=== PATIENT | female | born 1990 | race Caucasian/White ===

== ENCOUNTER → 2018-01-29 11:13 | Outpatient (CLI) | payer MEDICAID, SELFPAY ==
[2018-01-29 12:14] LABS: hCG Titer Quant., Serum < 1 mIU/mL (<9 non-preg)
== END ==
PROVIDERS: Referring Provider Obstetrics & Gynecology; Visit Provider Obstetrics & Gynecology
DX: N91.2 Amenorrhea, unspecified (principal)
CPT/HCPCS: 36415; 84702

== ENCOUNTER → 2018-09-21 | Outpatient (CLI) | payer MEDICAID, SELFPAY ==
[2018-09-21 11:06] VITALS: BMI 24.4
[2018-09-21 12:13] LABS: Absolute Lymphocyte Count 1.98 X10^3/ul (0.83-4.51); Absolute Neutrophil Count 6.8 X10^3/uL (2.0-7.7); Basophil# 0.01 X10^3/uL; Basophil% 0.1 % (0-1); Eosinophil# 0.06 X10^3/uL; Eosinophils% 0.6 % (0-5); Hematocrit 38.1 % (37-47); Hemoglobin 13.3 g/dl (12.0-15.0); Lymphocyte # 1.98 X10^3/ul (4.0); Mean Corp Hgb Conc 34.9 g/gl (32-36); Mean Corpuscular Hgb 31.3 pg (27.0-32.0); Mean Corpuscular Volume 89.6 fL (81-99); Mean Platelet Vol. 10.2 fl (6.2-12.0); Monocyte# 0.59 X10^3/uL; Monocyte% 6.3 % (0-10); Neutrophil # 6.79 X10^3/uL (2.7-7.7); Neutrophil % 71.9 % (47-70); Platelet Count 223 K/mm3 (150-450); RBC Distribution Width CV 13.6 % (11.6-14.6); RBC Distribution Width SD 44.6 fl (35.1-43.9); Red Blood Count 4.25 M/mm3 (4.2-5.4); White Blood Count 9.4 K/mm3 (4.4-11.0)
[2018-09-21 12:17] LABS: POSITIVE COUNT NO; POSITIVE DIFFERENTIAL NO; POSITIVE MORPHOLOGY NO
[2018-09-21 13:29] LABS: HIV - WCH Non-Reactive (Nonreactive); Hepatitis B Surface Antigen Non-Reactive (Nonreactive); Rubella IgG 97.6 IU/mL
--- NOTE | 2018-09-21 16:02 | US_ITS ---
STUDY: SECOND AND THIRD TRIMESTER OBSTETRICAL ULTRASOUND REASON FOR EXAM: Female, 27 years old. Anatomy. LMP: April 21, 2018. TECHNIQUE: Transabdominal TECHNICAL QUALITY: Adequate. PRIOR ULTRASOUND: None. FINDINGS: There is a single intrauterine fetus. The fetus is in a breech presentation. There is demonstrated cardiac activity with a heart rate of 160 bpm. There is a normal amniotic fluid volume. The largest amniotic fluid pocket measures 5.8 cm. The placenta is posterior in location and is not low lying. There are Grade 1 placental changes. The cervix measures 3.7 cm in length. The bilateral adnexal regions are normal. BIOMETRY: BPD: 5.4 cm: 22 weeks, 4 days HC: 20.38 cm: 22 weeks, 4 days AC: 17.83 cm: 22 weeks, 5 days FL: 3.93 cm: 22 weeks, 5 days CI: FL/BPD: 76 FL/HC: FL/AC: 22 HC/AC: 1.14 age by current US: 22 weeks, 5 days. SLADE by current US: January 20, 2019. Estimated weight: 523 grams, +/- 76 grams, 83 %. Age by LMP: 21 weeks, 6 days. SLADE by LMP: January 26, 2019. ANATOMY: Gender: Female Cranium: Normal lateral ventricles. Normal choroid plexus. Normal cerebellum. Normal cisterna magna. Normal face, nose and lips. Chest: Normal 4-chamber heart. Abdomen/Pelvis: Normal diaphragm. Normal stomach. Normal abdominal wall. Normal cord insertion. Normal 3 vessel cord. Normal kidneys. Normal bladder. Spine: Normal cervical spine. Normal thoracic spine. Normal lumbar spine. Normal sacrum. There is limited sagittal evaluation of the spine particularly of the lumbar spine. Extremities: Normal bilateral upper extremities. Normal bilateral lower extremities. US/OB Anatomy Scan IMPRESSION: 1. Live single intrauterine 22 weeks, 5 days. SLADE is January 20, 2019. 2. EFW 523 g. 3. Adequate amniotic fluid. 4. Posterior grade 1 placenta. 5. Breech presentation. 6. No visualized anatomic abnormality of the fetus. Electronically Signed: Kalyan Segovia DO at 22:24 EDT Tel [phone], Service support ,
[2018-09-21 16:55] LABS: Chlamydia Trachomatis by PCR Negative (Negative); Neisserai gonorrhoeae by PCR Negative (Negative); Probe Check PASS; Sample Adequacy Control PASS; Specimen Processing Control PASS
[2018-09-25 05:48] LABS: Rapid Plasmin Reagin (RPR) NONREACTIVE (NONREACTIVE)
[2018-09-30 18:00] LABS: HPV Reflexed? NOT INDICATED
== END | disposition home or self-care (01) ==
PROVIDERS: Referring Provider Obstetrics & Gynecology; Visit Provider Obstetrics & Gynecology
DX: O09.30 Supervision of pregnancy with insufficient antenatal care, unspecified trimester (principal); Z12.4 Encounter for screening for malignant neoplasm of cervix; Z34.90 Encounter for supervision of normal pregnancy, unspecified, unspecified trimester; Z3A.00 Weeks of gestation of pregnancy not specified
CPT/HCPCS: 36415; 76805; 85025; 86592; 86703; 86762; 86850; 86900; 87086; 87088; 87340; 87491; 87591; 87624; 88175; G0145

== ENCOUNTER → 2018-11-12 | Outpatient (CLI) | payer MEDICAID, SELFPAY ==
[2018-11-10 08:28] VITALS: BMI 24.4
[2018-11-12 10:38] LABS: Absolute Lymphocyte Count 2.07 X10^3/uL (0.83-4.51); Absolute Neutrophil Count 8.1 X10^3/uL (2.0-7.7); Basophil# 0.03 X10^3/uL; Basophil% 0.3 % (0-1); Eosinophil# 0.07 X10^3/uL; Eosinophils% 0.6 % (0-5); Hematocrit 36.7 % (37-47); Hemoglobin 12.5 g/dL (12.0-15.0); Lymphocyte # 2.07 X10^3/ul (4.0); Mean Corp Hgb Conc 34.1 g/dL (32-36); Mean Corpuscular Hgb 31.4 pg (27.0-32.0); Mean Corpuscular Volume 92.2 fL (81-99); Mean Platelet Vol. 10.5 fl (6.2-12.0); Monocyte# 0.64 X10^3/uL; Monocyte% 5.9 % (0-10); NRBC Flagged by Analyzer 0 % (0-5); Neutrophil # 8.06 X10^3/uL (2.7-7.7); Neutrophil % 73.8 % (47-70); Platelet Count 234 K/mm3 (150-450); RBC Distribution Width CV 12.1 % (11.6-14.6); RBC Distribution Width SD 41.2 fl (35.1-43.9); Red Blood Count 3.98 M/mm3 (4.2-5.4); White Blood Count 10.9 K/mm3 (4.4-11.0)
[2018-11-12 10:52] LABS: Glucose Challenge Gest 1H 50g 114 mg/dL (70-140)
== END | disposition home or self-care (01) ==
LOC: PAVLAB 09:57
PROVIDERS: Referring Provider Obstetrics & Gynecology; Visit Provider Obstetrics & Gynecology
DX: Z34.90 Encounter for supervision of normal pregnancy, unspecified, unspecified trimester (principal); Z3A.29 29 weeks gestation of pregnancy
CPT/HCPCS: 36415; 82950; 85025

== ENCOUNTER → 2018-11-30 14:02 | Outpatient (CLI) | payer MEDICAID, SELFPAY ==
[2018-11-24 12:54] VITALS: BMI 24.4
--- NOTE | 2018-11-30 14:04 | US_ITS ---
STUDY: SECOND AND THIRD TRIMESTER OBSTETRICAL ULTRASOUND REASON FOR EXAM: Female, 28 years old. Growth LMP: 04/21/2018 TECHNIQUE: Transabdominal TECHNICAL QUALITY: Adequate. PRIOR ULTRASOUND: 09/21/2018. FINDINGS: There is a single intrauterine fetus. The fetus is in a cephalic presentation. There is demonstrated cardiac activity with a heart rate of 146 bpm. There is a normal amniotic fluid volume. The largest amniotic fluid pocket measures 4.6 cm. The amniotic fluid index (LAILA) is 11.8 cm. The placenta is posterior and fundal in location and is not low lying. There are Grade 0 placental changes. The cervix measures 4.7 cm in length. The adnexal regions are not visualized. BIOMETRY: BPD: 8.1: 32 weeks, 3 days HC: 30.1: 33 weeks, 3 days AC: 28.6: 32 weeks, 5 days FL: 6.3: 32 weeks, 4 days CI: FL/BPD: FL/HC: FL/AC: HC/AC: age by current US: 32 weeks, 6 days. SLADE by current US: 01/19/2019. Estimated weight: 2019 grams, +/- 295 grams, 65 %. age by prior US: weeks, days. SLADE by prior US: . Age by LMP: 31 weeks, 6 days. SLADE by LMP: 01/26/2019. US/OB Limited With Biometrics IMPRESSION: Single live fetus in a vertex presentation. survey not performed on this exam. Placenta is grade 0 and is not low-lying. Cervix is closed. age by current US: 32 weeks, 6 days. SLADE by current US: 01/19/2019. Estimated weight: 2019 grams, +/- 295 grams, 65 %. Electronically Signed: Bennett Marie MD at 14:22 EDT , Service support ,
== END ==
PROVIDERS: Referring Provider Obstetrics & Gynecology; Visit Provider Obstetrics & Gynecology
DX: O09.90 Supervision of high risk pregnancy, unspecified, unspecified trimester (principal); O09.30 Supervision of pregnancy with insufficient antenatal care, unspecified trimester; Z3A.00 Weeks of gestation of pregnancy not specified
CPT/HCPCS: 76816

== ENCOUNTER → 2018-12-31 12:14 | Outpatient (CLI) | payer MEDICAID, SELFPAY ==
[2018-12-31 08:06] VITALS: BMI 24.4
== END ==
PROVIDERS: Referring Provider Obstetrics & Gynecology; Visit Provider Obstetrics & Gynecology
DX: Z34.90 Encounter for supervision of normal pregnancy, unspecified, unspecified trimester (principal); Z3A.36 36 weeks gestation of pregnancy
CPT/HCPCS: 87081

== ENCOUNTER → 2019-01-08 09:09 | Outpatient (CLI) | payer MEDICAID, SELFPAY ==
[2018-12-31 08:06] VITALS: BMI 24.4
[2019-01-06 15:09] VITALS: BMI 24.4
--- NOTE | 2019-01-08 09:11 | US_ITS ---
STUDY: SECOND AND THIRD TRIMESTER OBSTETRICAL ULTRASOUND REASON FOR EXAM: Female, 28 years old growth. LMP: November 30, 2018 TECHNIQUE: Transabdominal TECHNICAL QUALITY: Adequate. PRIOR ULTRASOUND: None. FINDINGS: There is a single intrauterine fetus. The fetus is in a cephalic presentation. There is demonstrated cardiac activity with a heart rate of 148 bpm. There is a normal amniotic fluid volume. The largest amniotic fluid pocket measures 5.0 cm. The amniotic fluid index (LAILA) is 12.1 cm. The placenta is fundal in location. There are Grade 2 placental changes. The cervix is not able to be measured due to position.. The adnexal regions are not visualized. BIOMETRY: BPD: 9.12 cm: 36 weeks, 6 days HC: 34.02 cm: 39 weeks, 0 days AC: 33.9 cm: 37 weeks, 5 days FL: 7.04 cm: 36 weeks, 0 days CI: 79% FL/BPD: 77% FL/HC: FL/AC: 21% HC/AC: 1.0 age by current US: 37 weeks, 2 days. SLADE by current US: January 27, 2019. Estimated weight: 3212 grams, +/- 475 grams, 59 %. age by prior US: 38 weeks, 3 days. SLADE by prior US: January 19, 2019 Age by LMP: 37 weeks, 3 days. SLADE by LMP: January 26, 2019. US/OB Limited With Biometrics IMPRESSION: Single live intrauterine gestation with a mean gestational age of 38 weeks and 3 days. The measurements obtained today fall within normal expected range. Electronically Signed: Gabe Keenan, at 10:16 EDT , Service support ,
== END ==
PROVIDERS: Referring Provider Obstetrics & Gynecology; Visit Provider Obstetrics & Gynecology
DX: O26.843 Uterine size-date discrepancy, third trimester (principal); Z3A.00 Weeks of gestation of pregnancy not specified
CPT/HCPCS: 76816

== ENCOUNTER 2019-01-31 20:00 | Inpatient (IN) | payer MEDICAID, SELFPAY ==
[2019-01-27 09:57] VITALS: BMI 27.7
[2019-01-31] MEDS: Lactated Ringers 1,000 ML 200 ML IV (20:30)
[2019-01-31 20:53] LABS: Absolute Lymphocyte Count 2.69 X10^3/uL (0.83-4.51); Absolute Neutrophil Count 7.5 X10^3/uL (2.0-7.7); Basophil# 0.02 X10^3/uL; Basophil% 0.2 % (0-1); Eosinophil# 0.08 X10^3/uL; Eosinophils% 0.7 % (0-5); Hematocrit 37.8 % (37-47); Hemoglobin 12.4 g/dL (12.0-15.0); Lymphocyte # 2.69 X10^3/ul (4.0); Lymphocyte % 24.6 % (19-41); Mean Corp Hgb Conc 32.8 g/dL (32-36); Mean Corpuscular Hgb 27.3 pg (27.0-32.0); Mean Corpuscular Volume 83.3 fL (81-99); Mean Platelet Vol. 10.9 fl (6.2-12.0); Monocyte# 0.64 X10^3/uL; Monocyte% 5.9 % (0-10); NRBC Flagged by Analyzer 0 % (0-5); Neutrophil # 7.46 X10^3/uL (2.7-7.7); Neutrophil % 68.3 % (47-70); Platelet Count 314 K/mm3 (150-450); RBC Distribution Width CV 13.2 % (11.6-14.6); RBC Distribution Width SD 39.6 fl (35.1-43.9); Red Blood Count 4.54 M/mm3 (4.2-5.4); White Blood Count 10.9 K/mm3 (4.4-11.0)
[2019-01-31] MEDS: Oxytocin 30 units/NS 500 ml 30 UNITS/500 ML IV.SOLN IV (21:20)
[2019-01-31 21:26] VITALS: BMI 27.9
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
[2019-01-31] MEDS: Lactated Ringers 500 ML 999 ML IV (22:58)
[2019-02-01] MEDS: Lactated Ringers 1,000 ML 50 ML IV (03:06)
[2019-02-01] MEDS: Oxytocin 30 units/NS 500 ml 30 UNITS/500 ML IV.SOLN 334 UNITS IV (04:50)
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
[2019-02-01 08:27] VITALS: BP 139/93; PULSE 81; RESP 16; TEMP 36.6
[2019-02-01 12:40] VITALS: BP 114/68; PULSE 108; RESP 16; TEMP 37.3
[2019-02-01 15:38] VITALS: BP 133/64; PULSE 99; RESP 16; TEMP 37.1
[2019-02-01 19:59] VITALS: BP 120/77; PULSE 94; RESP 18; TEMP 36.8; O2SAT 97
[2019-02-02 00:29] VITALS: BP 117/63; PULSE 86; RESP 16; TEMP 36.4
[2019-02-02 04:23] VITALS: BP 124/78; PULSE 76; RESP 16; TEMP 36.6
--- NOTE | 2019-02-02 07:40 | PCM.PN.OB ---
Patient Problems: Active and Suspected Problems (Last Reviewed 01/27/19 @ 09:57 by Kari Lau) SROM (spontaneous rupture of membranes) (Acute) Subjective: doing well no complaints pain controlled no CP SOB N V ambulating well tolerating po lochia moderate, with some difficulty, pumping - Physical Exam Vitals/I&O's: Vital Signs Temp Pulse Resp BP Pulse Ox 97.9 F 76 16 124/78 H 97 02/02/19 04:23 02/02/19 04:23 02/02/19 04:23 02/02/19 04:23 02/01/19 19:59 Oxygen Delivery Method Room Air Weight: 173 lb Body Mass Index (BMI) 27.9 Intake and Output for Last 24 Hours 01/31/19 02/01/19 02/02/19 23:59 23:59 23:59 Intake Total 1004.77 / 1004.77 987.67 / 987.67 Output Total 75 / 75 1550 / 1550 Balance 929.77 / 929.77 -562.33 / -562.33 General: Alert, Oriented x3 Abdomen: Non Tender, Non-Distended, - - FF below U Current Medications Acetaminophen (Tylenol) 1,000 mg PO Q8H PRN PRN PRN Reason: Pain Score 1-3/10 Bisacodyl (Dulcolax) 10 mg RECTAL UD PRN PRN Reason: If no BM Dibucaine (Dibucaine) 1 applic TOPICAL TID PRN PRN; Protocol PRN Reason: Discomfort Hydrocortisone (Hytone) 1 applic TOPICAL TID PRN PRN; Protocol PRN Reason: Discomfort Methylergonovine Maleate (Methergine) 0.2 mg IM X1 PRN PRN Reason: Excess bleeding/uterine atony Naproxen (Naprosyn) 500 mg PO Q8H PRN PRN PRN Reason: Pain Score 1-3/10 Ondansetron HCl (Zofran) 4 mg IV Q4H PRN PRN PRN Reason: Nausea Oxycodone HCl (Oxyir) 5 - 10 mg PO Q4H PRN PRN PRN Reason: Pain Score 4-10/10 Senna/Docusate Sodium (Senokot-S, Mechelle-Colace) 1 - 2 tablet PO DAILY PRN PRN PRN Reason: Constipation Simethicone (Mylicon) 80 mg PO PCHS PRN PRN Reason: Indigestion/Stomach pain Sodium Chloride () 5 - 15 ml IV UD PRN PRN Reason: SALINE FLUSH Medical Necessity - Tobacco Use Smoking Status: Never smoker Assessment/Plan All Active Problems (Last Reviewed 01/27/19 @ 09:57 by Kari Lau) SROM (spontaneous rupture of membranes) (Acute) Influenza vaccination declined (Acute) Low grade squamous intraepithelial lesion (LGSIL) (Acute) (Acute) Late care affecting (Acute) Supervision of high-risk (Acute) s/p PPD # 1. routine post delivery care 2. breast feeding- support given 3. rh positive 4. rubella immune 5. home today
--- NOTE | 2019-02-02 07:42 | DCINST_ITS ---
Additional Instructions: If you experience any of the following, contact your healthcare provider. * Bleeding that soaks a pad every hour for 2 hours * Fever 100.4 or higher * Unrelieved incision or abdominal pain * Swelling, redness, discharge or bleeding from your incision or episiotomy site * Your incision begins to separate * Problems urinating (including inability to urinate or burning while urinating). * Visual changes * Severe headache * Flu-like symptoms * Pain or redness in one of both of your breasts * Pain, warmth, tenderness or swelling in your legs, especially the calf area * Frequent nausea and vomiting * Symptoms of depression or anxiety If you experience any of the following, call 911 or go to the nearest Emergency Room. * Chest pain * Problems breathing * Seizure activity * Partial or complete paralysis of a body part, slurred speech, weakness or drooping of the face, or a sudden inability to walk or hold your balance Allergies/Adverse Reactions: Allergies No Known Allergies Allergy (Verified 01/31/19 21:53) Medications to take at Discharge vitamin#30 30 mg iron-10 mg iron-folic acid 1 mg-omg3 capsule 1 cap PO DAILY cap 09/21/18 Primary Care Physician: Care Physician,No Primary [Primary Care Provider] - Test Results: Test results from this visit will be discussed in further detail at your follow- up appointment, if applicable.
--- NOTE | 2019-02-02 07:42 | PCM.DCVAG ---
Additional Instructions: If you experience any of the following, contact your healthcare provider. Bleeding that soaks a pad every hour for 2 hours Fever 100.4 or higher Unrelieved incision or abdominal pain Swelling, redness, discharge or bleeding from your incision or episiotomy site Your incision begins to separate Problems urinating (including inability to urinate or burning while urinating). Visual changes Severe headache Flu-like symptoms Pain or redness in one of both of your breasts Pain, warmth, tenderness or swelling in your legs, especially the calf area Frequent nausea and vomiting Symptoms of depression or anxiety If you experience any of the following, call 911 or go to the nearest Emergency Room. Chest pain Problems breathing Seizure activity Partial or complete paralysis of a body part, slurred speech, weakness or drooping of the face, or a sudden inability to walk or hold your balance Allergies/Adverse Reactions: Allergies No Known Allergies Allergy (Verified 01/31/19 21:53) Medications to take at Discharge vitamin#30 30 mg iron-10 mg iron-folic acid 1 mg-omg3 capsule 1 cap PO DAILY cap 09/21/18 Primary Care Physician: Care Physician,No Primary [Primary Care Provider] - Test Results: Test results from this visit will be discussed in further detail at your follow-up appointment, if applicable.
[2019-02-02 08:23] VITALS: BP 116/64; PULSE 67; RESP 16; TEMP 36.5
[2019-02-02 14:00] VITALS: BP 135/86; PULSE 83; RESP 16; TEMP 36.6
[2019-02-02 19:00] VITALS: BP 134/93; PULSE 110; RESP 16; TEMP 36.4; O2SAT 97
== END 2019-02-02 19:23 | disposition home or self-care (01) | DRG 560 ==
PROVIDERS: Admitting Provider Obstetrics & Gynecology; Referring Provider Obstetrics & Gynecology; Visit Provider Obstetrics & Gynecology
DX: O80 Encounter for full-term uncomplicated delivery (principal); Z3A.40 40 weeks gestation of pregnancy; Z37.0 Single live birth; R87.612 Low grade squamous intraepithelial lesion on cytologic smear of cervix (LGSIL)
CPT/HCPCS: 59050; 85025; 86850; 86900; 86901; 99218; J7120; G0378

== ENCOUNTER → 2020-11-14 | Outpatient (CLI) | payer MEDICAID, SELFPAY ==
[2020-11-17 03:07] LABS: Chlamydia By Nucleic Acid AMP Negative (Negative)
[2020-11-17 12:16] LABS: Gonococcus By Nucleic Acid AMP Negative (Negative)
[2020-11-17 16:33] LABS: HPV Reflexed? NOT INDICATED
== END | disposition home or self-care (01) ==
LOC: LABSPEC 17:14
PROVIDERS: Referring Provider Nurse Practitioner Women's Health; Visit Provider Nurse Practitioner Women's Health
DX: Z11.3 Encounter for screening for infections with a predominantly sexual mode of transmission (principal); Z12.4 Encounter for screening for malignant neoplasm of cervix
CPT/HCPCS: 87491; 87591; 88175; G0145

== ENCOUNTER 2021-02-11 23:51 | Emergency (ER) | payer MEDICAID, SELFPAY ==
[2021-02-11 23:51] VITALS: BP 144/95; PULSE 106; RESP 20; TEMP 36.2; O2SAT 98; BMI 22.6
--- NOTE | 2021-02-12 00:01 | RAD_ITS ---
HISTORY: Trauma, injury-- attn: 1st toe EXAMINATION/TECHNIQUE: XR Foot Min 3 Views: COMPARISON: None FINDINGS: BONES/JOINTS: No acute fracture or dislocation. Preservation of the joint spaces. SOFT TISSUES: No soft tissue swelling or gas. No radiopaque foreign body. RAD/Foot min 3 Views IMPRESSION: No acute bony abnormality. at 0021 Reported and signed by: Gt Gandhi MD Electronically Signed: Gt Gandhi MD at 0:20 EST Tel , Service support ,
--- NOTE | 2021-02-12 00:02 | EDS_ITS ---
HPI History of Present Illness Chief Complaint: Lower Extremity Injury Informant: patient Onset/Context/Timing Onset: Today Current Severity: Moderate Maximum Severity: Moderate Narrative Narrative: Patient presents secondary to right great toe injury. Patient states she was sitting on her bed and got her knee caught on her purse handle. She fell off the bed putting all her weight on her right foot. She has pain to her right great toe and is concerned it is dislocated. She denies any other injury. PFSH PFSH Medical History no medical history no medical history Home Medications NK 02/12/21 [History Last Taken Unknown] Allergy/AdvReac Type Severity Reaction Status Date / Time No Known Allergies Allergy Verified 02/11/21 23:54 Family History Grandfather Heart disease Myocardial infarction Surgical History History of wisdom tooth extraction, class II edentulism Social History Smoking Status: Never smoker alcohol intake: never substance use type: does not use caffeine: Yes what type of physical activity do you participate in: walking seatbelt use: always do you feel safe at home: Yes additional social history: Seperated- works at the [employer] ED Constitutional Constitutional ED: Denies chills or fever(s) Eyes Eyes: Denies change in vision ENT ENT ED: Denies sore throat Cardiovascular Cardiovascular: Denies chest pain Respiratory/Chest Respiratory/Chest: Denies cough or dyspnea Gastrointestinal Gastrointestinal: Denies abdominal pain or nausea Genitourinary Genitourinary ED: Denies dysuria Musculoskeletal Musculoskeletal: Denies back pain Integumentary Denies rash Neurologic Neurologic: Denies weakness Allergic/Immunologic Allergic/Immunologic ED: Denies urticaria EXAM Physical Exam Const Vital Signs: 02/11/21 23:51 Temperature 97.2 F L Temperature Source Temporal Pulse Rate 106 H Respiratory Rate 20 H Blood Pressure 144/95 H Blood Pressure Mean 111 Pulse Ox 98 Oxygen Delivery Method Room Air Positive well nourished and well developed General Appearance ED: well developed Eyes PERRL and EOMs intact bilaterally Neck supple Chest Wall inspection of chest normal and palpation of chest normal Resp normal respiratory effort and clear to auscultation bilaterally Cardio regular rate and regular rhythm GI non-tender Palpation: soft Extremity Extremity Narrative: Mild erythema to the right great toe. No obvious deformity. Good cap refill distally. No tenderness over the ankle, calcaneus, metatarsal bones. Neuro oriented x3 Sensorium / Orientation: alert Psych mental status grossly normal Skin no rashes or lesions noted MDM MDM MDM Narrative Medical decision making narrative: Right foot x-rays obtained Radiography Diagnostic Testing: Clinical Impression(s) from Imaging Studies Foot X-Ray 02/12/21 00:01 IMPRESSION: No acute bony abnormality. at 0021 Reported and signed by: Gt Gandhi MD Electronically Signed: Gt Gandhi MD at 0:20 EST Tel , Service support , Treatment and Re-Evaluation Comments:: Right foot x-ray reveals no acute abnormality per my interpretation. No fracture noted. Radiology interpretation is reviewed. Test results discussed with the patient. Encouraged to walk on her heel and use anti-inflammatories. Return instructions provided. Discharge Plan Triage Chief Complaint: Lower Extremity Injury ED Provider: Sarah Metcalf Dx/Rx/DC Orders Clinical Impression: Sprain of toe, great, right Instructions: ED Foot Sprain Prescriptions: No Action NK RF: 0 Primary Care Provider: Care Physician,No Primary Referrals: Staci Parker MD [STAFF PHYSICIAN] - As Needed Care Physician,No Primary [Primary Care Provider] - Disposition Disposition: Home, Self Care
== END 2021-02-12 00:28 | disposition home or self-care (01) ==
PROVIDERS: Emergency Provider Emergency Medicine
DX: S93.501A Unspecified sprain of right great toe, initial encounter (principal); W06.XXXA Fall from bed, initial encounter; Y93.9 Activity, unspecified; Y92.9 Unspecified place or not applicable
CPT/HCPCS: 73630; 99282

== ENCOUNTER → 2022-08-07 | Outpatient (CLI) | payer MEDICAID, SELFPAY ==
--- NOTE | 2022-08-07 14:26 | BI_ITS ---
MAMMOGRAPHY - BILATERAL DIAGNOSTIC REASON FOR EXAM: Female, 31 years old. 4 day history of right retroareolar breast pain/fullness. PERTINENT HISTORY: Non-contributory. TECHNIQUE: Digital bilateral breast melany (3D mammographic acquisition) in the CC and MLO projections. 2-D mediolateral oblique (MLO) and craniocaudad (CC) views of both breasts were obtained. CAD: Full Field Digital Mammography with Computer Added Detection was performed. COMPARISON: None. Baseline examination. FINDINGS: Breast Composition: The breasts are heterogeneously dense, which may obscure small masses. There are no dominant masses or suspicious calcifications. No other significant abnormalities are identified. BI/DIAG MAMM W/CAD, BILAT IMPRESSION: Negative diagnostic mammogram. With the patient''s history of fullness/pain in the right retroareolar region, correlation with ultrasound is recommended. ASSESSMENT CATEGORY: BIRADS Category 0: Incomplete. Need additional imaging evaluation. A letter regarding these results will be sent to the patient by the facility within 30 days. Approximately 10% of breast cancers are not detected by mammography. A normal mammogram should not delay biopsy of a clinically suspicious abnormality. Electronically Signed: Gabe Keenan MD at 15:05 EDT ,
--- NOTE | 2022-08-07 14:26 | US_ITS ---
STUDY: ULTRASOUND BREAST - RIGHT REASON FOR EXAM: Female, 31 years old. Pain in the right breast. TECHNIQUE: Axial and longitudinal images of the RIGHT breast were performed with a high resolution ultrasound transducer. # OF IMAGES: 29 COMPARISON: Comparison is made with prior mammogram done earlier today. FINDINGS: RIGHT Breast: The retroareolar region of the breast was examined with ultrasound. No sonographic abnormality is seen. US/Breast Limited Unilateral IMPRESSION: No sonographic abnormality is seen. ASSESSMENT CATEGORY: BIRADS Category 1: Negative. A letter regarding these results will be sent to the patient by the facility within 30 days. Electronically Signed: Gabe Keenan MD at 14:05 EDT ,
== END | disposition home or self-care (01) ==
PROVIDERS: Referring Provider Nurse Practitioner Women's Health; Visit Provider Nurse Practitioner Women's Health
DX: N63.10 Unspecified lump in the right breast, unspecified quadrant (principal)
CPT/HCPCS: 77062; 76642; 77066; G0279